=== PATIENT | female | born 1990 | race African-American/Black ===

== ENCOUNTER 2016-07-12 17:20 | Emergency (ER) | payer SELFPAY ==
[2016-07-12 17:25] VITALS: BP 120/77; PULSE 85; TEMP 98.4; BMI 24.9
--- NOTE | 2016-07-12 18:57 | PDOC ---
History of Present Illness - General Chief Complaint: Urinary Problem Stated Complaint: URINARY PROBLEM/LT FOOT SWOLLEN Time Seen by Provider: 07/12/16 18:40 History Source: Patient Exam Limitations: No Limitations - History of Present Illness Initial Comments: 07/12/16 18:54 Chief complaint: Painful urination for one week, left fifth toe discomfort with redness and blister formation History of present illness: Patient is a 26-year-old female with no significant medical history here today complaining of pain at end of urination for one week. Patient does reports that she goes to the bathroom frequently is no different than usual. Patient denies any urgency or hematuria or any back pain, nausea, vomiting, or any fever. Patient denies any vaginal discharge. She also reports having tenderness to her left fifth toe for a few days and had noticed a blister formation between her fourth and fifth toe on left foot. Patient started to soak her foot a few days ago in ebsom salt fall and has decreased redness of the area. 07/12/16 18:58 Timing/Duration: changing over time Severity: mild Associated Symptoms: reports: other (dysuria for one week, left toe redness with blister formation between 4th and 5th toe ) Past History - Past Medical History Allergies/Adverse Reactions: Allergies Allergy/AdvReac Type Severity Reaction Status Date / Time No Known Allergies Allergy Verified 07/12/16 17:25 Home Medications: Ambulatory Orders Nitrofurantoin Monohyd/M-Cryst [Macrobid -] 100 mg PO BID #14 capsule 07/12/16 Other medical history: NONE - Psycho/Social/Smoking Cessation Hx Suicidal Ideation: No Smoking History: Never smoked Hx Alcohol Use: Yes (SOCIAL) Drug/Substance Use Hx: No Review of Systems - Review of Systems Able to Perform ROS?: Yes Constitutional: No: Symptoms Reported HEENTM: No: Symptoms Reported Respiratory: No: Symptoms reported Cardiac (ROS): No: Symptoms Reported ABD/GI: No: Symptoms Reported : Yes: Dysuria. No: Burning, Discharge, Frequency, Flank Pain, Hematuria, Incontinence, Pain, Urgency Musculoskeletal: No: Symptoms Reported Integumentary: Yes: Erythema (left 5th toe slight between 4th & 5th with blister formation ) Neurological: No: Symptoms reported *Physical Exam - Vital Signs Last Vital Signs Temp Pulse Resp BP Pulse Ox 98.4 F 85 20 120/77 99 07/12/16 17:22 07/12/16 17:22 07/12/16 17:22 07/12/16 17:22 07/12/16 17:22 - Physical Exam General Appearance: Yes: Appropriately Dressed Respiratory/Chest: positive: Lungs Clear, Normal Breath Sounds. negative: Chest Tender, Respiratory Distress Cardiovascular: positive: Regular Rhythm, Regular Rate, S1, S2 Gastrointestinal/Abdominal: positive: Normal Bowel Sounds, Soft. negative: Tender, Organomegaly, Pulsatile Mass, Increased Bowel Sounds, Decreased BS, Protuberent, Distended, Guarding, Rebound, Tenderness, Mass, Hepatomegaly, Spleenomegaly Musculoskeletal: positive: Normal Inspection. negative: CVA Tenderness, CVA Tenderness (R), CVA Tenderness (L) Extremity: positive: Normal Capillary Refill, Normal Range of Motion, Erythema ( slight erythema surrounding a blister formation between left 4th & 5th toe ). negative: Normal Inspection Integumentary: positive: Other (see under extremity ) Neurologic: positive: Alert, Normal Response, Responsive Procedures - Consent Consent obtained: From Patient - Additional Procedures Progress: 07/12/16 19:57 Cleansed area between left fourth and fifth toe with Betadine and then normal saline 0.9% dried area and applied a tiny amount of bacitracin ointment ED Treatment Course - ADDITIONAL ORDERS Additional order review: Laboratory Results 07/12/16 18:10 Urine HCG, Qual Negative Medical Decision Making - Medical Decision Making 07/12/16 18:57 Patient is a 26-year-old female with no significant medical history here today complaining of pain at end of urination for one week. Patient does reports that she goes to the bathroom frequently is no different than usual. Patient denies any urgency or hematuria or any back pain, nausea, vomiting, or any fever. She also reports having tenderness to her left fifth toe for a few days and had noticed a blister formation between her fourth and fifth toe on left foot. Patient started to soak her foot a few days ago in ebsom salt fall and has decreased redness of the area. Pt.has been having unprotected sex. 07/12/16 19:56 r/o UTI left toe blister formation between 4th and 5th toes Unprotected sex PLAN: urinalysis urine C & S chlamydia/GC does not want to be treated prophaxically for chlamydia or gonorrhea we will call lab lying in a few days for results Cleansed area between left fourth and fifth toe with Betadine and then normal saline 0.9% dried area and applied a tiny amount of bacitracin ointment 07/12/16 19:58 07/12/16 20:36 Laboratory Tests 07/12/16 07/12/16 18:10 20:10 Urine Color Ltyellow Urine Appearance Clear Urine pH 6.0 Ur Specific [place] 1.026 Urine Protein Negative Urine Glucose (UA) Negative Urine Ketones Negative Urine Blood Negative Urine Nitrite Negative Urine Bilirubin Negative Urine Urobilinogen Negative Ur Leukocyte Esterase Negative Urine HCG, Qual Negative 07/12/16 20:41 will give rx for macrodantin 100 mg bid for 7 days pt. will start this for possible mild UTI and will stop if her urine C & S is negative in a couple of days *DC/Admit/Observation/Transfer Diagnosis at time of Disposition: Unprotected sex, Dysuria Blister of toe of left foot Qualifiers: Encounter type: initial encounter Qualified Code(s): S90.425A - Blister ( nonthermal), left lesser toe(s), initial encounter - Discharge Dispostion Disposition: HOME Condition at time of disposition: Stable - Patient Instructions Additional Instructions: Cleanse area between left fourth and fifth toe with antibacteria soap and water area well and apply tiny amount of bacitracin ointment until area is totally healed then make sure that she dry between your toes well Drink a lot a fluids especially cranberry juice Follow-up with your primary care provider at the end of treatment for repeat testing of your urine return to emergency room if any nausea vomiting or any back pain or fever increased redness between fourth and fifth left toes ] Patient voiced understanding of discharge instructions and all questions were answered
[2016-07-12 20:17] LABS: URINE APPEARANCE CLEAR; URINE BILIRUBIN NEGATIVE (NEGATIVE); URINE BLOOD NEGATIVE (NEGATIVE); URINE COLOR LTYELLOW; URINE GLUCOSE (UA) NEGATIVE (NEGATIVE); URINE KETONE NEGATIVE (NEGATIVE); URINE LEUK ESTERASE NEGATIVE (NEGATIVE); URINE NITRITE NEGATIVE (NEGATIVE); URINE PROTEIN NEGATIVE (NEGATIVE); URINE UROBILINOGEN NEGATIVE E.U./dl (0.2-1.0)
--- NOTE | 2016-07-15 16:46 | PDOC ---
Patient Follow-up (Call Back) - Post ED Follow - Up Condition at time of discharge: Stable Disposition at time of original discharge: HOME Reason for Call Back: Abnwl. Microbiology (07/12/16 urine C & S revealed citrobacter koseri will need to change RX to bactrim DS 1 tab bid for 7 day, D/ C macrobid will send new RX to [facility] se [facility]. [facility] spoke with pt. she did not fill rx for macrobid)
== END 2016-07-12 20:47 | disposition home or self-care (01) ==
LOC: JERFT 17:20
DX: Z77.21 Contact with and (suspected) exposure to potentially hazardous body fluids (principal); R30.0 Dysuria; S90.425A Blister (nonthermal), left lesser toe(s), initial encounter; X58.XXXA Exposure to other specified factors, initial encounter; Y93.89 Activity, other specified; Y92.038 Other place in apartment as the place of occurrence of the external cause
CPT/HCPCS: 36415; 81003; 84703; 87086; 87186; 87491; 87591; 99281-25

== ENCOUNTER 2017-01-07 18:43 | Emergency (ER) | payer SELFPAY ==
[2017-01-07 18:48] VITALS: BMI 27.8
--- NOTE | 2017-01-07 20:16 | PDOC ---
History of Present Illness - General Chief Complaint: Pain Stated Complaint: 18 WEEKS /ABD PAIN Time Seen by Provider: 01/07/17 20:00 - History of Present Illness Initial Comments: 01/07/17 20:22 Patient is a 26-year-old female who is 18 weeks who presents to the emergency department tonight complaining of lower abdominal cramping. Patient states that her symptoms began approximately 3 days ago. She states that the pain begins in her groin and wraps around to her back. She is concerned about the baby. She is not taking anything for the pain. She denies vaginal bleeding, spotting. States that she saw a white discharge this morning. Admits to frequency. Denies urgency, hematuria, dysuria, fevers, chills, vomiting, diarrhea, constipation, chest pain, shortness of breath. Past History - Past Medical History Allergies/Adverse Reactions: Allergies Allergy/AdvReac Type Severity Reaction Status Date / Time No Known Allergies Allergy Verified 01/07/17 18:48 Home Medications: Ambulatory Orders Sulfamethoxazole/Trimethoprim [Bactrim Ds -] 1 tab PO BID #14 tablet 07/15/16 Other medical history: NONE - Psycho/Social/Smoking Cessation Hx Anxiety: No Suicidal Ideation: No Smoking History: Never smoked Hx Alcohol Use: No Drug/Substance Use Hx: No Substance Use Type: None Review of Systems - Review of Systems Comments:: 01/07/17 22:39 CONSTITUTIONAL: Absent: fever, chills, diaphoresis, generalized weakness, malaise, loss of appetite HEENT: Absent: rhinorrhea, nasal congestion, throat pain, throat swelling, difficulty swallowing, mouth swelling, ear pain, eye pain, visual Changes CARDIOVASCULAR: Absent: chest pain, loss of consciousness, palpitations, irregular heart rate, peripheral edema RESPIRATORY: Absent: cough, shortness of breath, dyspnea with exertion, orthopnea, wheezing, stridor, hemoptysis GASTROINTESTINAL: Lower abdominal cramping. Absent: abdominal distension, nausea, vomiting, diarrhea, constipation, melena, hematochezia GENITOURINARY: Absent: dysuria, frequency, urgency, hesitancy, hematuria, flank pain, genital pain, discharge MUSCULOSKELETAL: Absent: myalgia, arthralgia, joint swelling SKIN: Absent: rash, itching, pallor HEMATOLOGIC/IMMUNOLOGIC: Absent: easy bleeding, easy bruising, lymphadenopathy, frequent infections ENDOCRINE: Absent: unexplained weight gain, unexplained weight loss, heat intolerance, cold intolerance NEUROLOGIC: Absent: headache, focal weakness or paresthesias, dizziness, unsteady gait, seizure, mental status changes, bladder or bowel incontinence PSYCHIATRIC: Absent: anxiety, depression, suicidal or homicidal ideation, hallucinations. *Physical Exam - Vital Signs Last Vital Signs Temp Pulse Resp BP Pulse Ox 98.4 F 82 20 114/65 100 01/07/17 18:46 01/07/17 18:46 01/07/17 18:46 01/07/17 18:46 01/07/17 18:46 - Physical Exam Comments: 01/07/17 22:39 GENERAL: Well developed, well nourished. Awake and alert. No acute distress. HEENT: Normocephalic, atraumatic. PERRLA, EOMI. No conjunctival pallor. Sclera are non- icteric. Moist mucous membranes. Oropharynx is clear. NECK: Supple. Full ROM. No JVD. Carotid pulses 2+ and symmetric, without bruits. No thyromegaly. No lymphadenopathy. CARDIOVASCULAR: Regular rate and rhythm. No murmurs, rubs, or gallops. Distal pulses are 2+ and symmetric. PULMONARY: No evidence of respiratory distress. Lungs clear to auscultation bilaterally. No wheezing, rales or rhonchi. ABDOMINAL: Soft. Non-tender. Non-distended. No rebound or guarding. No organomegaly. Normoactive bowel sounds. MUSCULOSKELETAL Normal range of motion at all joints. No bony deformities or tenderness. No CVA tenderness. EXTREMITIES: No cyanosis. No clubbing. No edema. No calf tenderness. SKIN: Warm and dry. Normal capillary refill. No rashes. No jaundice. NEUROLOGICAL: Alert, awake, appropriate. Cranial nerves 2-12 intact. No deficits to light touch and temperature in face, upper extremities and lower extremities. No motor deficits in the in face, upper extremities and lower extremities. Normoreflexic in the upper and lower extremities. Normal speech. Toes are down- going bilaterally. Gait is normal without ataxia. PSYCHIATRIC: Cooperative. Good eye contact. Appropriate mood and affect. PELVIC: External genitalia with out rash or lesions. Internal: Cervical os is closed, no blood in the vault. Bimanual differed d/t 2nd trimester ED Treatment Course - LABORATORY CBC & Chemistry Diagram: 01/07/17 20:48 01/07/17 20:48 Medical Decision Making - Medical Decision Making 01/07/17 22:39 Patient is a 26-year-old female who is currently 18 weeks presenting to the emergency department today complaining of lower abdominal cramping. Given patient's history and physical most likely normal abdominal pain in . However will order lab work to rule out infection at this time. Also obtain UA and UC to rule out urinary tract infection. We will give Tylenol for pain. Reevaluate. 01/08/17 01:03 Blood work and urine are within normal limits. No evidence of infection. Ultrasound was performed at bedside to visualize the fetus. Under ultrasound guidance fetus was visualized with good movements and appropriate heartbeat. Patient was relieved to see her baby. We'll discharge patient home at this time. Most likely normal abdominal pain in . Educated patient on what to expect as the baby grows. Referral given for Dr. Yolanda Coulter as patient has recently moved to [place] and needs a new [employer]. Patient was instructed to follow-up with her primary care doctor or [employer] and week patient is to return the emergency department if she sees any vaginal bleeding or spotting experiences worsening cramping, or fevers and chills. Patient understands all discharge instructions and all questions were answered at this time. *DC/Admit/Observation/Transfer Diagnosis at time of Disposition: Abdominal pain affecting - Discharge Dispostion Admit: No - Referrals Referrals: Kaye Hayes MD [Staff Physician] - - Patient Instructions Printed Discharge Instructions: DI for Abdominal Pain -- Early Additional Instructions: Your exam was normal today. There was good movement on ultrasound with an appropriate heart rate. Abdominal pain in can be normal as the ligaments that hold the uterus in place expand to make room for the baby. If you have any changes in your abdominal pain, note where the pain is and what it feels like. Follow up with your ANIMAL CAREGIVER tomorrow and tell them you were in the ED today. Return to the Ed if you have worsening pain, vaginal bleeding, fever, chills, nausea, vomiting or any changes in your symptoms.
[2017-01-07] MEDS ORDERED: ACETAMINOPHEN 325 MG TABLET (FP) PO ONE (20:19)
--- NOTE | 2017-01-07 21:00 | PDOC ---
*Physical Exam - Vital Signs Last Vital Signs Temp Pulse Resp BP Pulse Ox 98.4 F 82 20 114/65 100 01/07/17 18:46 01/07/17 18:46 01/07/17 18:46 01/07/17 18:46 01/07/17 18:46 ED Treatment Course - LABORATORY CBC & Chemistry Diagram: 01/07/17 20:48 01/07/17 20:48 Medical Decision Making - Medical Decision Making 01/07/17 21:00 agree with care from MACRINA Quevedo *DC/Admit/Observation/Transfer Diagnosis at time of Disposition: Abdominal pain affecting - Referrals Referrals: Kaye Hayes MD [Staff Physician] - - Patient Instructions Printed Discharge Instructions: DI for Abdominal Pain -- Early Additional Instructions: Your exam was normal today. There was good movement on ultrasound with an appropriate heart rate. Abdominal pain in can be normal as the ligaments that hold the uterus in place expand to make room for the baby. If you have any changes in your abdominal pain, note where the pain is and what it feels like. Follow up with your RADIO DISPATCHER tomorrow and tell them you were in the ED today. Return to the Ed if you have worsening pain, vaginal bleeding, fever, chills, nausea, vomiting or any changes in your symptoms.
[2017-01-07] MEDS ORDERED: ACETAMINOPHEN 325 MG TABLET (FP) ONE (21:17)
[2017-01-07 21:19] LABS: URINE APPEARANCE CLEAR; URINE BILIRUBIN NEGATIVE (NEGATIVE); URINE BLOOD NEGATIVE (NEGATIVE); URINE COLOR STRAW; URINE GLUCOSE (UA) NEGATIVE (NEGATIVE); URINE KETONE NEGATIVE (NEGATIVE); URINE LEUK ESTERASE NEGATIVE (NEGATIVE); URINE NITRITE NEGATIVE (NEGATIVE); URINE PROTEIN NEGATIVE (NEGATIVE); URINE UROBILINOGEN NEGATIVE mg/dL (0.2-1.0)
[2017-01-07 21:25] LABS: BASOPHIL 0.4 % (0-2.0); EOSINOPHIL 1.4 % (0-4.5); MCH 26.9 pg (25.7-33.7); MCHC 32.7 g/dl (32.0-36.0); MEAN CELL VOLUME 82.4 fl (80-96); MEAN PLT VOLUME 7.8 fl (7.5-11.1); NEUTROPHILS 68.4 % (42.8-82.8); PLATELET COUNT 292 K/MM3 (134-434); WHITE BLOOD COUNT 8.3 K/mm3 (4.0-10.0)
[2017-01-07 21:46] VITALS: BP 110/70; PULSE 84; TEMP 98.1
[2017-01-07 22:03] LABS: ALBUMIN 3.2 g/dl (3.4-5.0); ALK PHOS 84 U/L (45-117); ANION GAP 10 (8-16); BILIRUBIN,TOTAL 0.4 mg/dL (0.2-1.0); CO2 24 mmol/L (21-32); CREATININE 0.4 mg/dL (0.55-1.02); GLUCOSE,RANDOM 77 mg/dL (74-106); SGOT/AST 31 U/L (15-37); SGPT/ALT 44 U/L (12-78); TOT PROT 6.9 g/dl (6.4-8.2)
[2017-01-07 22:32] LABS: PLATELET ESTIMATE ADEQUATE (NORMAL)
== END 2017-01-07 23:38 | disposition home or self-care (01) ==
LOC: JER 18:43
DX: R10.30 Lower abdominal pain, unspecified (principal); Z3A.18 18 weeks gestation of pregnancy
CPT/HCPCS: 36415; 80053; 81003; 84702; 85025; 87086; 99282-25

== ENCOUNTER 2017-06-01 12:56 | Inpatient (IN) | payer OTHER ==
[2017-06-01] MEDS ORDERED: KETOROLAC TROMETHAMINE 30 MG/1 ML VIAL ONE (13:24)
[2017-06-01] MEDS ORDERED: morphine SULFATE/Preservative Free 0.5 MG/ML (1cc Syringe) ONE (13:25)
[2017-06-01] MEDS ORDERED: ONDANSETRON 4 MG/2 ML VIAL IVPUSH PRN (13:54)
[2017-06-01] MEDS ORDERED: CITRIC ACID/SODIUM CITRATE 30 ML UNIT-DOSE CUP PO ONE (14:00)
[2017-06-01] MEDS: ELECTROLYTE-148 SOLN 1,000 ML IV SCH (14:00)
[2017-06-01 14:02] VITALS: BMI 30.9
[2017-06-01] MEDS ORDERED: OXYTOCIN 20 UNITS in 0.9% NS 20 UNIT/1,000 ML INFUS.BAG IV ONE ×2 (14:24→17:26)
[2017-06-01] MEDS ORDERED: ceFAZolin SODIUM 1 GM VIAL ONE (14:25)
[2017-06-01] MEDS ORDERED: SODIUM CHLORIDE 0.9% P/F 10 ML VIAL IJ ONE (14:25)
[2017-06-01] MEDS ORDERED: ePHEDrine SULFATE 50 MG/1 ML AMPULE ONE (15:11)
--- NOTE | 2017-06-01 15:37 | HP ---
Past Medical History - Primary Care Physician PCP:: Stanley Brooks - Admission Chief Complaint: 39 weeks, previous c/s , request of c/s History of Present Illness: 27 yo f g 4 p1021 39 weeks, previous c/s ,request of repeat c/s, rba discussed and encouraged, cx clp, vx -3 mi, fhr cat1 History Source: Patient Limitations to Obtaining History: No Limitations - Past Medical History ...: 4 ...Para: 1 ...Term: 1 ...: 0 ...Spon : 1 ...Induced : 1 ...Multiple Gestation: 0 ...LMP: 08/24/16 ... Weeks Gestation by Dates: 39.6 ...EDC by Dates: 06/02/17 ...EDC by Sono: 06/08/17 - Past Surgical History Past Surgical History: Yes: Hx Myomectomy: No Hx Transabdominal Cerclage: No - Smoking History Smoking history: Never smoked Have you smoked in the past 12 months: No - Alcohol/Substance Use Hx Alcohol Use: No - Social History Usual Living Arrangement: Yes: With Spouse History of Recent Travel: No Home Medications - Allergies Allergies/Adverse Reactions: Allergies Allergy/AdvReac Type Severity Reaction Status Date / Time No Known Allergies Allergy Verified 06/01/17 14:14 - Home Medications Home Medications: Ambulatory Orders Vit Calc,Iron,Folic [ Vitamins] 1 each PO DAILY 02/23/17 Ferrous Sulfate 325 mg PO DAILY 06/01/17 Review of Systems - Review of Systems Constitutional: reports: No Symptoms Eyes: reports: No Symptoms HENT: reports: No Symptoms Neck: reports: No Symptoms Cardiovascular: reports: No Symptoms Respiratory: reports: No Symptoms Gastrointestinal: reports: No Symptoms Genitourinary: reports: No Symptoms Breasts: reports: No Symptoms Reported Musculoskeletal: reports: No Symptoms Integumentary: reports: No Symptoms Neurological: reports: No Symptoms Endocrine: reports: No Symptoms Hematology/Lymphatic: reports: No Symptoms Psychiatric: reports: No Symptoms Physical Exam - Maternity Vital Signs: Vital Signs Temperature 98.2 F 06/01/17 12:56 Pulse Rate 86 06/01/17 12:56 Respiratory Rate 18 06/01/17 12:56 Blood Pressure 123/65 06/01/17 12:56 O2 Sat by Pulse Oximetry (%) Constitutional: Yes: Well Nourished, No Distress, Calm Eyes: Yes: WNL, Conjunctiva Clear, EOM Intact HENT: Yes: WNL, Atraumatic, Normocephalic Neck: Yes: WNL, Supple, Trachea Midline Cardiovascular: Yes: WNL, Regular Rate and Rhythm Breast(s): Yes: WNL - Abdominal Exam/OB Fundal Height: 40 Number of Fetuses: Single Presentation: Vertex Contractions: No Intensity: Unaware Monitor Mode: External Heart Rate Location: [facility] Category: I Accelerations: Uniform Decelerations: None - Vaginal Exam/OB Vaginal Bleediing: No Amniotic Membrane Status: Intact Presentation: Vertex/Position Station: -3 - Physical Exam Edema: Yes Edema: LLE: Trace, RLE: Trace Deep Tendon Reflex Grade: Normal +2 Psychiatric: Yes: WNL Hemorrhage Risk Assessment - Risk Factors Medium Risk Factors: Yes: Prior , uterine surgery,or multiple laparotomies Risk Score: 1 Risk Level: Medium Risk Problem List - Problems (1) with 39 completed weeks gestation Code(s): Z3A.39 - 39 WEEKS GESTATION OF (2) Previous section complicating Code(s): O34.219 - MATERNAL CARE FOR UNSP TYPE SCAR FROM PREVIOUS DEL Assessment/Plan repeat c/s ,rba discussed
[2017-06-01] MEDS ORDERED: WITCH HAZEL 50% (TUCKS) 40 PAD/JAR PAD TP PRN (16:47)
[2017-06-01] MEDS ORDERED: BENZOCAINE 28 GM HEMORRHOIDAL OINTMENT PR PRN (16:47)
[2017-06-01] MEDS ORDERED: METHYLERGONOVINE MALEATE 0.2 MG/1 ML AMP IM PRN (16:47)
[2017-06-01] MEDS ORDERED: BENZOCAINE 20% 57 GM BOTTLE TP PRN (16:47)
[2017-06-01] MEDS ORDERED: IBUPROFEN 800 MG/8 ML IJ IVPB PRN (16:47)
[2017-06-01] MEDS ORDERED: diphenhydrAMINE HCL 25 MG CAPSULE (FP) PO PRN (16:47)
[2017-06-01] MEDS ORDERED: DEXTROSE 5%-LACTATED RINGERS 1,000 ML IV SCH (17:00)
[2017-06-01] MEDS ORDERED: OXYTOCIN 20 UNITS in 0.9% NS 20 UNIT/1,000 ML INFUS.BAG IV SCH (17:00)
[2017-06-01] MEDS ORDERED: CEFAZOLIN 1 GM/D5W 1 GM/50 ML BAG IVPB SCH ×2 (18:00→23:00)
--- NOTE | 2017-06-01 21:56 | OP ---
DATE OF OPERATION: 06/01/2017 PREOPERATIVE DIAGNOSIS: , 39 weeks; previous section, request of repeat section. POSTOPERATIVE DIAGNOSIS: , 39 weeks; previous section, request of repeat section. PROCEDURE: Repeat low-segment transverse section. SURGEON: Ryan Brooks MD W[employer] PLANT OPERATOR: MACRINA Pineda ANESTHESIA: Spinal. ANESTHESIOLOGIST: ESTIMATED BLOOD LOSS: 500 mL FINDING: A live baby girl, Apgars 9 and 9, ROT position. DESCRIPTION OF OPERATION: Patient was taken to the operating room. Under adequate spinal anesthesia, abdomen and perineum were prepped and draped. Pfannenstiel abdominal skin incision was made. The abdominal wall was cut layer by layer until peritoneum was exposed and incised. Upon entering the abdominal cavity, lower uterine segment was identified and uterovesical fold of peritoneum established. Bladder was pushed down. Then, with the lower blade of the Jordon retractor in the pelvis, a low transverse uterine incision was made. Incision extended laterally. Amniotic sac was entered, clear fluid. Head delivered from right occiput transverse position. Nasopharynx was suctioned, and live baby girl was delivered. Placenta was delivered manually. Uterine cavity was cleaned of all remaining tissue. Uterine incision was closed in 2 layers, first layer with 0 Biosyn continuous suture, the second layer with 0 Biosyn imbricating the first layer. Bladder flap was closed with 0 Biosyn continuous suture. Both tubes and ovaries checked and normal. No active bleeding was seen. All the lap pads, sponge, and instrument counts were correct. Then, peritoneum was closed with 0 Biosyn continuous suture. Muscles were brought together with interrupted suture of 0 Biosyn. Fascia was closed with 0 Biosyn continuous suture, subcutaneous fat with interrupted suture of 0 Biosyn, and the skin was closed with carla. Patient tolerated the procedure well, left the OR in good condition. RYNA BROOKS M.D. /[id number]
[2017-06-01] MEDS ORDERED: CEFAZOLIN 1 GM PUSH 1 GM/10 ML DISP.SYRIN IVPUSH SCH (23:00)
[2017-06-02] MEDS ORDERED: CEFAZOLIN 1 GM PUSH 1 GM/10 ML DISP.SYRIN IVPUSH ONE (06:15)
[2017-06-02] MEDS: IBUPROFEN 600 MG TABLET (FP) PO PRN ×3 (08:49→22:13)
[2017-06-02] MEDS: oxyCODONE HCL 5 MG TABLET PO PRN ×3 (08:51→22:14)
[2017-06-02] MEDS: SIMETHICONE 80 MG TAB.CHEW (FP) PO PRN ×3 (08:52→22:14)
[2017-06-02 09:57] LABS: BASO % 0.3 % (0-2.0); EOS % 0.9 % (0-4.5); MCH 26.5 pg (25.7-33.7); MEAN PLT VOLUME 8.3 fl (7.5-11.1); PLATELET COUNT 222 K/MM3 (134-434); RDW 14.5 % (11.6-15.6); WHITE BLOOD COUNT 10.2 K/mm3 (4.0-10.0)
[2017-06-02] MEDS: ENOXAPARIN NA (PORCINE) 40 MG/0.4 ML DISP.SYRIN SQ SCH (11:05)
--- NOTE | 2017-06-02 11:38 | PN ---
Progress Note, Physician Chief Complaint: s/p c section under spinal anesthesia History of Present Illness: post op day one, duramorph for post op pain. - Current Medication List Current Medications: Active Medications Benzocaine (Americaine 20% Wisdom -) 1 spray TP PRN PRN PRN Reason: PAIN Benzocaine (Americaine Ointment -) 1 applic UT PRN PRN PRN Reason: PAIN Bisacodyl (Dulcolax Suppository -) 10 mg UT PRN PRN PRN Reason: CONSTIPATION Diphenhydramine HCl (Benadryl -) 25 mg PO Q8H PRN PRN Reason: FOR ITCHING Last Admin: 06/02/17 03:25 Dose: 25 mg Enoxaparin Sodium (Lovenox -) 40 mg SQ DAILY STEFFI Last Admin: 06/02/17 11:05 Dose: 40 mg Parenteral Electrolytes (Plasma-Lyte 148 -) 1,000 mls @ 125 mls/hr IV ASDIR STEFFI Last Admin: 06/01/17 14:00 Dose: 125 mls/hr Dextrose/Lactated Ringer's (D5-Lr -) 1,000 mls @ 125 mls/hr IV ASDIR STEFFI Ibuprofen (Motrin -) 600 mg PO Q4H PRN PRN Reason: PAIN Last Admin: 06/02/17 08:49 Dose: 600 mg Ibuprofen (Caldolor Injection -) 800 mg IVPB Q6H PRN PRN Reason: PAIN Last Admin: 06/01/17 21:02 Dose: 800 mg Methylergonovine Maleate (Methergine Injection -) 0.2 mg IM Q4H PRN PRN Reason: EXCESSIVE BLEEDING Ondansetron HCl (Zofran Injection) 4 mg IVPUSH Q4H PRN PRN Reason: NAUSEA Oxycodone HCl (Roxicodone -) 5 mg PO Q4H PRN PRN Reason: PAIN LEVEL 1-5 Last Admin: 06/02/17 08:51 Dose: 5 mg Oxycodone HCl (Roxicodone -) 10 mg PO Q4H PRN PRN Reason: PAIN LEVEL 6-10 Senna/Docusate Sodium (Pericolace -) 2 tablet PO HS PRN PRN Reason: CONSTIPATION Simethicone (Mylicon -) 80 mg PO Q4H PRN PRN Reason: GAS Last Admin: 06/02/17 08:52 Dose: 80 mg Witch Linda/Glycerin (Tucks Pads -) 1 pad TP PRN PRN PRN Reason: PAIN - Objective Vital Signs: Vital Signs Temperature 97.9 F 06/02/17 09:30 Pulse Rate 83 06/02/17 09:30 Respiratory Rate 20 06/02/17 09:30 Blood Pressure 107/64 06/02/17 09:30 O2 Sat by Pulse Oximetry (%) 100 06/01/17 16:20 Constitutional: Yes: Well Nourished Cardiovascular: Yes: WNL Respiratory: Yes: WNL Gastrointestinal: Yes: WNL Neurological: Yes: WNL Labs: CBC, BMP 06/02/17 09:15 Assessment/Plan No adverse effect of anesthetic, no nausea or vomiting, no headache, pain controlled, dept of anesthesia will sign off care at this time.
--- NOTE | 2017-06-02 12:17 | PN ---
Progress Note (short form) - Note Progress Note: pod 1 doing well, no excess vaginal bleeding CBC, BMP 06/02/17 09:15 Last Vital Signs Temp Pulse Resp BP Pulse Ox 97.9 F 83 20 107/64 100 06/02/17 09:30 06/02/17 09:30 06/02/17 09:30 06/02/17 09:30 06/01/17 16:20 abdomen soft, no distension , non tender lochia mild , no calf tenderness pod1 doing well, plan ambulate advance diet, pain management Problem List - Problems (1) with 39 completed weeks gestation Code(s): Z3A.39 - 39 WEEKS GESTATION OF (2) Previous section complicating Code(s): O34.219 - MATERNAL CARE FOR UNSP TYPE SCAR FROM PREVIOUS DEL
[2017-06-02] MEDS ORDERED: BISACODYL 10 MG SUPP.RECT PR PRN (16:47)
[2017-06-02] MEDS: ACETAMINOPHEN 325 MG TABLET (FP) PO PRN (20:51)
[2017-06-03] MEDS: SIMETHICONE 80 MG TAB.CHEW (FP) PO PRN ×3 (06:01→21:00)
[2017-06-03] MEDS: oxyCODONE HCL 5 MG TABLET PO PRN ×3 (06:01→20:59)
[2017-06-03] MEDS: IBUPROFEN 600 MG TABLET (FP) PO PRN ×3 (06:01→21:00)
--- NOTE | 2017-06-03 08:17 | PN ---
Post Progress Note - Subjective Subjective: c/o pain scale 8/10 voiding without difficulty Post Day: 2 Type of Delivery: Repeat C/S Vital Signs: Vital Signs Temperature 98.5 F 06/02/17 22:00 Pulse Rate 89 06/02/17 22:00 Respiratory Rate 20 06/02/17 22:00 Blood Pressure 111/65 06/02/17 22:00 O2 Sat by Pulse Oximetry (%) 100 06/01/17 16:20 Breast Exam: Yes: Soft, Other (BF & Bottle feeding ). No: Engorged Uterus: Yes: Fundus Firm, Fundus below umbilicus, Non-tender Incision: Yes: [place] intact, Oozing (edges in the centre of incision not well approximated due to scar tissuse , oozing of blood noted ). No: Redness Abdomen/GI: Yes: Abdomen soft, Passing flatus, Tolerating PO (diet ). No: Abdominal Distention, Tender Lochia: Yes: Rubra Lochia, amount: Moderate Extremities: Yes: Calves non-tender Perineum: Yes: Intact Activity: Ambulating - Labs Labs: CBC WBC 10.2 K/mm3 (4.0-10.0) H D 06/02/17 09:15 RBC 3.85 M/mm3 (3.60-5.2) 06/02/17 09:15 Hgb 10.2 GM/dL (10.7-15.3) L D 06/02/17 09:15 Hct 31.9 % (32.4-45.2) L 06/02/17 09:15 MCV 83.0 fl (80-96) 06/02/17 09:15 MCH 26.5 pg (25.7-33.7) 06/02/17 09:15 MCHC 32.0 g/dl (32.0-36.0) 06/02/17 09:15 RDW 14.5 % (11.6-15.6) 06/02/17 09:15 Plt Count 222 K/MM3 (134-434) 06/02/17 09:15 MPV 8.3 fl (7.5-11.1) 06/02/17 09:15 Neutrophils % 82.0 % (42.8-82.8) 06/02/17 09:15 Lymphocytes % 9.9 % (8-40) D 06/02/17 09:15 Monocytes % 6.9 % (3.8-10.2) 06/02/17 09:15 Eosinophils % 0.9 % (0-4.5) 06/02/17 09:15 Basophils % 0.3 % (0-2.0) 06/02/17 09:15 Assessment/Plan stable post repeat c/section Plan ct po care
[2017-06-03] MEDS: ENOXAPARIN NA (PORCINE) 40 MG/0.4 ML DISP.SYRIN SQ SCH (10:34)
[2017-06-03] MEDS: ELECTROLYTE-148 SOLN 1,000 ML IV SCH (15:29)
[2017-06-03] MEDS ORDERED: SENNOSIDES/DOCUSATE COMBO (SENNA PLUS) TABLET (UD) PO PRN (22:00)
[2017-06-04] MEDS: IBUPROFEN 600 MG TABLET (FP) PO PRN (08:11)
[2017-06-04] MEDS: ACETAMINOPHEN 325 MG TABLET (FP) PO PRN (08:12)
[2017-06-04] MEDS: SIMETHICONE 80 MG TAB.CHEW (FP) PO PRN (08:13)
[2017-06-04 08:14] LABS: BASO % 0.6 % (0-2.0); EOS % 3.7 % (0-4.5); MCH 26.5 pg (25.7-33.7); MCHC 32.2 g/dl (32.0-36.0); MEAN CELL VOLUME 82.3 fl (80-96); MEAN PLT VOLUME 7.8 fl (7.5-11.1); NEUT % 49.3 % (42.8-82.8); PLATELET COUNT 249 K/MM3 (134-434); RDW 14.3 % (11.6-15.6); WHITE BLOOD COUNT 4.6 K/mm3 (4.0-10.0)
[2017-06-04] MEDS: ENOXAPARIN NA (PORCINE) 40 MG/0.4 ML DISP.SYRIN SQ SCH (10:39)
--- NOTE | 2017-06-04 12:10 | DS ---
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 Vital Signs: Vital Signs Temperature 98.0 F 06/03/17 22:00 Pulse Rate 77 06/03/17 22:00 Respiratory Rate 20 06/03/17 22:00 Blood Pressure 103/59 06/03/17 22:00 O2 Sat by Pulse Oximetry (%) 100 06/01/17 16:20 Constitutional: Yes: Well Nourished Eyes: Yes: Conjunctiva Clear HENT: Yes: Atraumatic Neck: Yes: Supple Cardiovascular: Yes: Regular Rate and Rhythm Respiratory: Yes: Regular Gastrointestinal: Yes: Normal Bowel Sounds Pelvis: Yes: WNL External Genitalia: Yes: Normal Vaginal Exam: Yes: Normal Cervix: Yes: Normal Uterus: Yes: Firm Wound/Incision: Yes: [place] Intact Neurological: Yes: Alert, Oriented ...Motor Strength: WNL Psychiatric: Yes: Alert, Oriented Labs: CBC, BMP 06/04/17 06:00 Delivery - Delivery Type of Anesthesia: Spinal EBL (cc): 500 Delivery, Single - Stages of Labor Date of Delivery: 06/01/17 Time of Delivery: 14:59 Time Placenta Delivered: 15:00 - 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: No Infant Gender: Female Weight: 6 lb 15 oz Position: Right, OT Total Hours ROM (Hrs/Mins): 2 minutes - 1 Minute Total Score: 9 5 Minutes Total Score: 10 - [place] Feeding Plan Initial Plan: Elected not to breastfeed exclusively throughout hospitalization Discharge Summary Reason For Visit: C SECTION Current Active Problems with 39 completed weeks gestation (Acute) Previous section complicating (Acute) Procedures: Principal: Repeat Low Transverse Hospital Course: Routine Post op care Condition: Good - Instructions Diet, Activity, Other Instructions: regular diet No driving, no lifting x 4 weeks F/U in clinic in 1 week Disposition: HOME - Home Medications Comprehensive Discharge Medication List: Ambulatory Orders Vit Calc,Iron,Folic [ Vitamins] 1 each PO DAILY 02/23/17 Ferrous Sulfate 325 mg PO DAILY 06/01/17
[2017-06-04 12:28] VITALS: BP 112/68; PULSE 62; TEMP 98
--- NOTE | 2017-06-05 17:18 | PATH ---
Surgical Pathology Report Patient Name: LAWSON MAHER Med. Rec. 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 Specimen(s) Received PLACENTA Clinical History , VTOP x1, SAB x1, previous x1 2009 PPROM-low weight Final Diagnosis PLACENTA, SECTION: 351 g THIRD TRIMESTER PLACENTA WITH TRIVASCULAR UMBILICAL CORD AND UNREMARKABLE PLACENTAL MEMBRANES. Electronically Signed Radha Nieto M.D. Gross Description The specimen is received fresh labeled placenta and is a 351 gram, 18.0 x 15.0 x 1.9 cm. placenta with attached membranes and umbilical cord. The attached membranes are stoll, translucent with focal opacities and insert marginally. The umbilical cord measures 26 cm. in length and averages 1 cm. in diameter. The cord inserts eccentrically, 5 cm. to the nearest margin. No true knots or strictures are identified. Cut surface of the umbilical cord reveals 3 vessels. The surface is carmona blue with moderate fibrin deposition and appropriate caliber vessels. The maternal surface is red-brown with focal defects. Sectioning reveals red-brown, spongy parenchyma. No lesions are identified. Gig Tender sections are submitted in three cassettes as follows: 1- membrane rolls and umbilical cord; 2-3- full thickness sections of placenta. 06/04/2017 [facility]
== END 2017-06-04 12:45 | disposition home or self-care (01) | DRG 766 ==
LOC: JLDR 12:56 → J3W 17:24
PROVIDERS: ADMIT Obstetrics & Gynecology; ATTEND Obstetrics & Gynecology
PROC: 10D00Z1 Extraction of Products of Conception, Low, Open Approach (ICD-10-PCS; principal; 2017-06-01)
DX: O34.211 Maternal care for low transverse scar from previous cesarean delivery (principal); N85.8 Other specified noninflammatory disorders of uterus; Z3A.39 39 weeks gestation of pregnancy; Z37.0 Single live birth
CPT/HCPCS: 36415; 85025; 88307-TC